=== PATIENT | female | born 1955 | race Caucasian/White ===

== ENCOUNTER 2018-12-13 19:20 | Inpatient (IN) | payer OTHER, BC ==
[~2018-12-13] VITALS: Ht 165.1 cm; Wt 80.3 kg
== END 2018-12-16 18:01 | disposition home or self-care (01) | DRG 446 ==
LOC: ER 19:20 → MEDI 12-14 09:03
PROVIDERS: ADMIT Internal Medicine
PROC: BF37ZZZ Magnetic Resonance Imaging (MRI) of Pancreas (ICD-10-PCS; principal; 2018-12-14)
PROC: BW21Y0Z Computerized Tomography (CT Scan) of Abdomen and Pelvis using Other Contrast, Unenhanced and Enhanced (ICD-10-PCS; 2018-12-15)
DX: K81.0 Acute cholecystitis (principal); K76.89 Other specified diseases of liver; K86.89 Other specified diseases of pancreas; K83.8 Other specified diseases of biliary tract; R74.8 Abnormal levels of other serum enzymes

== ENCOUNTER → 2018-12-29 | Day surgery (SDC) | payer OTHER, BC | END | disposition home or self-care (01) | LOC: ADM 12-23 09:00 → AMB-ENDOS 12-26 09:00 → CIR.AMB 10:30 | DX: K83.1 Obstruction of bile duct (principal) ==

== ENCOUNTER 2019-01-09 08:17 | Emergency (ER) | payer OTHER ==
[~2019-01-09] VITALS: Ht 165.1 cm; Wt 75.7 kg
[2019-01-09] MEDS ORDERED: ACTIGALL300 MG (08:27)
[2019-01-09] MEDS ORDERED: CIPRO500 MG/5 M (08:27)
[2019-01-09] MEDS ORDERED: PREDNISONE10 MG (08:27)
== END 2019-01-10 12:23 | disposition home or self-care (01) ==
LOC: ER 08:17
DX: R10.84 Generalized abdominal pain (principal); C25.9 Malignant neoplasm of pancreas, unspecified

== ENCOUNTER 2020-09-02 09:01 | Inpatient (IN) | payer OTHER ==
[~2020-09-02] VITALS: Ht 162.6 cm; Wt 63.5 kg
[~2020-09-02 09:01] MED LIST: ACTIGALL300 MG; CIPRO500 MG/5 M; PREDNISONE10 MG
[2020-09-04] MEDS ORDERED: Ursodiol 300MG CAPSU PO (10:08)
[2020-09-04] MEDS ORDERED: ATARAX25 MG PO (10:08)
== END 2020-09-04 10:26 | disposition home or self-care (01) | DRG 919 ==
LOC: ER 09:01 → SEC-K 17:31 → SURH 17:31
PROVIDERS: ADMIT Internal Medicine; ATTEND Internal Medicine
PROC: 8E0ZXY6 Isolation (ICD-10-PCS; 2020-09-02)
PROC: 0FPB8DZ Removal of Intraluminal Device from Hepatobiliary Duct, Via Natural or Artificial Opening Endoscopic (ICD-10-PCS; principal; 2020-09-03)
PROC: BF10YZZ Fluoroscopy of Bile Ducts using Other Contrast (ICD-10-PCS; 2020-09-03)
PROC: 0F798DZ Dilation of Common Bile Duct with Intraluminal Device, Via Natural or Artificial Opening Endoscopic (ICD-10-PCS; 2020-09-03)
DX: T85.858A Stenosis due to other internal prosthetic devices, implants and grafts, initial encounter (principal); K83.1 Obstruction of bile duct; C25.7 Malignant neoplasm of other parts of pancreas; Y83.8 Other surgical procedures as the cause of abnormal reaction of the patient, or of later complication, without mention of misadventure at the time of the procedure; Z20.822 Contact with and (suspected) exposure to COVID-19; E86.0 Dehydration

== ENCOUNTER 2020-11-18 15:09 | Emergency (ER) | payer OTHER ==
[~2020-11-18] VITALS: Ht 162.6 cm; Wt 54.4 kg
[~2020-11-18 15:09] MED LIST changes: +ATARAX25 MG PO; +Ursodiol 300MG CAPSU PO
== END 2020-11-18 19:24 | disposition home or self-care (01) ==
LOC: ER 15:09
DX: R53.1 Weakness (principal); Z03.818 Encounter for observation for suspected exposure to other biological agents ruled out

== ENCOUNTER 2020-11-27 06:19 | Day surgery (SDC) | payer OTHER | END 2020-11-27 15:45 | disposition home or self-care (01) | LOC: AMB-ENDOS 06:19 | PROVIDERS: ATTEND Internal Medicine Gastroenterology | DX: K83.1 Obstruction of bile duct (principal) ==